=== PATIENT | female | born 1950 | race African-American/Black ===

== ENCOUNTER 2023-05-30 23:47 | Observation (INO) | payer MEDICARE, OTHER ==
[2023-05-31 00:08] VITALS: RESP 18
[2023-05-31 01:02] LABS: HEMATOCRIT 39.1 % (32.4-45.2); HEMOGLOBIN 12.6 GM/dL (10.7-15.3); MCH 26.6 pg (25.7-33.7); MCHC 32.3 g/dl (32.0-36.0); MEAN CELL VOLUME 82.2 fl (80-96); MEAN PLT VOLUME 7.2 fl (7.5-11.1); PLATELET COUNT 315 10^3/uL (134-434); RBC 4.76 M/mm3 (3.60-5.2); RDW 14.7 % (11.6-15.6)
[2023-05-31 01:20] LABS: POTASSIUM 4.3 mmol/L (3.5-5.1)
[2023-05-31 01:22] LABS: ALBUMIN 3.4 g/dl (3.4-5.0); CALCIUM 9.8 mg/dL (8.5-10.1); MAGNESIUM 2.2 mg/dL (1.8-2.4)
[2023-05-31 01:23] LABS: BLOOD UREA NITROGEN 13.8 mg/dL (7-18)
[2023-05-31 01:26] LABS: PHOSPHOROUS 2.9 mg/dL (2.5-4.9)
[2023-05-31 01:27] LABS: BILIRUBIN,TOTAL 0.1 mg/dL (0.2-1); TOT PROT 7.4 g/dl (6.4-8.2)
[2023-05-31] MEDS ORDERED: ACETAMINOPHEN 325 MG TABLET (FP) PO PRN (02:23)
[2023-05-31] MEDS ORDERED: ASPIRIN 81 MG CHEWABLE TABLETS PO ONE (02:27)
[2023-05-31 06:21] VITALS: PULSE 68; BMI 74.7
[2023-05-31] MEDS ORDERED: LEVOTHYROXINE NA 100 MCG TABLET (FP) PO SCH (07:00)
[2023-05-31] MEDS ORDERED: ATORVASTATIN CA 80 MG TABLET (FP) PO ONE (07:24)
[2023-05-31 08:46] LABS: HEMATOCRIT 41.3 % (32.4-45.2); HEMOGLOBIN 12.8 G/dL (10.7-15.3); MCH 26.2 pg (25.7-33.7); MCHC 30.9 g/dl (32.0-36.0); MEAN CELL VOLUME 84.6 fl (80-96); MEAN PLT VOLUME 7.7 fl (7.5-11.1); RBC 4.88 10^6/uL (3.60-5.2); WHITE BLOOD COUNT 9.9 10^3/uL (4.0-10.8)
[2023-05-31 09:02] LABS: CALCIUM 10.3 mg/dl (8.5-10.1); CREATININE 0.8 mg/dl (0.6-1.3)
[2023-05-31] MEDS ORDERED: CARVEDILOL 12.5 MG TABLET (FP) PO SCH (10:00)
[2023-05-31] MEDS ORDERED: ENOXAPARIN NA (PORCINE) 40 MG/0.4 ML DISP.SYRIN SQ SCH (10:00)
[2023-05-31] MEDS ORDERED: ASPIRIN 81 MG CHEWABLE TABLETS PO SCH (10:00)
[2023-05-31] MEDS ORDERED: LOSARTAN POTASSIUM 50 MG TABLET PO SCH (10:00)
[2023-05-31] MEDS ORDERED: amLODIPine BESYLATE 5 MG TABLET (FP) PO SCH (10:00)
[2023-05-31 14:34] VITALS: BP 130/80; TEMP 97.1
== END 2023-05-31 14:41 | disposition home or self-care (01) ==
LOC: FER 23:47 → FM/S 05-31 02:24
PROVIDERS: ADMIT Internal Medicine; ATTEND Internal Medicine
DX: R07.9 Chest pain, unspecified (principal); E03.9 Hypothyroidism, unspecified; I10 Essential (primary) hypertension; M19.90 Unspecified osteoarthritis, unspecified site; R22.9 Localized swelling, mass and lump, unspecified
CPT/HCPCS: 36415; 71045-TC-FY; 80048; 80053; 80061; 82550; 83036; 83735; 84100; 84439; 84443; 84484; 85027; 93005; 99285-25; G0378